=== PATIENT | male | born 1955 | race Caucasian/White ===

== ENCOUNTER 2025-04-27 06:30 | Outpatient (RCR) | payer MEDICARE, SELFPAY | END 2025-05-22 13:14 | disposition home or self-care (01) | LOC: WPT 06:30 | PROVIDERS: Family Provider Nurse Practitioner; PCP Nurse Practitioner Family; Visit Provider Specialist | DX: M17.12 Unilateral primary osteoarthritis, left knee (principal) | CPT/HCPCS: 97161 ==

== ENCOUNTER → 2025-05-13 08:59 | Outpatient (BNVA) | payer MEDICARE, SELFPAY | PROVIDERS: Family Provider Nurse Practitioner; PCP Nurse Practitioner Family; Visit Provider Specialist | DX: M17.12 Unilateral primary osteoarthritis, left knee (principal); G89.29 Other chronic pain | CPT/HCPCS: 73560; 73565; 99204 ==

== ENCOUNTER 2025-06-10 08:29 | Outpatient (RCR) | payer MEDICARE, SELFPAY | END 2025-06-26 23:59 | disposition home or self-care (01) | LOC: WPT 08:29 | PROVIDERS: Family Provider Nurse Practitioner; PCP Nurse Practitioner Family; Visit Provider Specialist | DX: M17.12 Unilateral primary osteoarthritis, left knee (principal) | CPT/HCPCS: 97110; 97112; 97530 ==